=== PATIENT | male | born 1955 | race Caucasian/White ===

== ENCOUNTER 2017-03-24 07:33 | Outpatient (CLI) | payer BC ==
--- NOTE | 2017-03-24 09:31 | ULT ---
ABDOMINAL ULTRASOUND: Date: 03/24/17 PROVIDED CLINICAL HISTORY: Elevated LFTs. FINDINGS: The visualized abdominal aorta is nonaneurysmal. Visualized portions of the IVC appear normal. The p ancreas is largely obscured. The liver demonstrates diffusely increased echogenicity compatible with fatty infiltration without evidence for mass or intrahepatic biliary ductal dilatation. The common duct is not dilated. The gallbladder demonstrates no stones, wall thickening, or pericholecystic flu id. The kidneys demonstrate no evidence for hydronephrosis. There is a circumscribed 1.8 cm focus of diminished echogenicity seen involving the inferior pole of the left kidney likely reflecting a cys t. The spleen appears enlarged, measuring about 13.5 cm in craniocaudal dimension. It measures about 5.3 x 4.4 cm in greatest transverse dimensions. IMPRESSION: 1. Fatty infiltration of the liver. 2. Mild splenomegaly. POS: [facility]
== END 2017-03-24 07:34 | disposition home or self-care (01) ==
LOC: ULT 07:33
PROVIDERS: ATTEND Internal Medicine
DX: R74.0 Nonspecific elevation of levels of transaminase and lactic acid dehydrogenase [LDH] (principal); K76.0 Fatty (change of) liver, not elsewhere classified; R16.1 Splenomegaly, not elsewhere classified
CPT/HCPCS: 76700

== ENCOUNTER 2017-05-13 06:52 | Outpatient (CLI) | payer BC ==
--- NOTE | 2017-05-13 11:04 | MRI ---
CERVICAL SPINE MRI WITHOUT CONTRAST: Date: 05/13/17 HISTORY: Cervical disc degeneration. COMPARISON: None. TECHNIQUE: Cervical spine MRI is performed without intravenous Gadolinium administration. Multisequential, multi planar imaging is performed. FINDINGS: There is appropriate T1 marrow signal intensity of the cervical vertebra. Cervical spine vertebral kacie dy height is maintained. No fracture. No significant STIR hyperintensity to suggest vertebral body ed nataly or ligamentous injury. There is a fluid collection posterior to the occiput. The patient appears to have a previous occipita l craniotomy. Evaluation is incomplete. Differential considerations include a postoperative fluid col lection. The possibility of a CSF leak or other etiologies cannot be excluded. 1.8 mm of retrolisthesis of C3 upon C4, 4.3 mm of anterolisthesis of C6 upon C7, and 3.4 mm of maldonado listhesis of C7 upon T1. Visualized brain parenchyma demonstrates mild cerebellar atrophy at the level of the vermis. The cerv ical cord and upper thoracic cord have an overall normal size and signal intensity. Axial images are somewhat limited by motion. C2-C3: No high grade central canal stenosis. Neural foramina are patent. C3-C4: Broad based disc osteophyte complex. No high grade central canal stenosis. Degenerative changes in bi lateral uncovertebral joints with mild to moderate right and moderate left foraminal narrowing. C4-C5: Broad based disc osteophyte complex. Effacement of the ventral subarachnoid space. Deformity of the c ervical cord. Moderate central canal stenosis. No T2 hyperintensity in the cord. Moderate bilateral f oraminal narrowing due to degenerative change on the uncovertebral joint. C6-C7: Right paracentral disc osteophyte complex. Mild central canal stenosis. No T2 hyperintensity of the c ord. Neural foramina are patent bilaterally. C7-T1: No high grade central canal stenosis or high grade foraminal narrowing. IMPRESSION: 1. Degenerative changes of the cervical spine as above. 2. Posterior scalp fluid as above. Consider additional evaluation. POS: [facility]
--- NOTE | 2017-05-13 11:07 | MRI ---
LUMBAR SPINE MRI WITHOUT IV CONTRAST: HISTORY: A 62-year-old male with lumbar disk herniation, low back pain for a long time. FINDINGS: Multiplanar, multisequence MRI examination of the lumbar spine is performed. Generalized disk desiccation changes and ligament and facet hypertrophic changes. Conus medullaris r egion is unremarkable terminating at L1. At L1-L2, there is some generalized bulging with a somewhat more focally prominent left posterolatera l protrusion with slight foraminal narrowing. At L2-L3, there is diffuse disk bulging again more focally prominent in the left posterolateral aspec t with some mild central canal and lateral recess stenosis and moderate left and mild right foraminal stenosis. At L3-L4, broad-based disk bulging with moderate to severe central canal and lateral recess stenosis and moderate bilateral foraminal stenosis. At L4-L5, diffuse disk bulging is somewhat more prominent centrally in the left paracentral region wi th moderate to severe central canal recess stenosis and moderate left foraminal stenosis. At L5-S1, diffuse disk bulging with moderate left foraminal stenosis. Multilevel variable severity canal, lateral recess, and foraminal stenosis. POS: [facility]
--- NOTE | 2017-05-13 11:31 | MRI ---
MRI OF THE LEFT KNEE WITHOUT CONTRAST: INDICATION: Left knee pain anteriorly. FINDINGS: There is a moderate-sized semimembranosis-medial gastrocnemius popliteal cyst. The extensor mechanis m is intact. The lateral meniscus is intact. There is a horizontally oriented tear involving the kacie dy and posterior horn of the medial meniscus with partial medial extrusion. There is mild diffuse ch ondrosis involving the medial femoral tibial joint compartment. A small bone island is seen within t he proximal aspect of the lateral tibial plateau. Small marginal osteophytes are seen affecting the major compartments of the left knee. No full-thickness osteochondral defect is seen involving the pa tellofemoral compartment nor within the femoral tibial compartment. The MCL, ACL, PCL, LCLC, and ext ensor mechanism is intact. IMPRESSION: 1. Mild diffuse chondrosis involving the medial femoral tibial joint compartment with mild osteophyt osis likely reflecting some early mild osteoarthrosis of the left knee. 2. Medial meniscal tear. 3. Moderate-sized Prater's cyst. POS: [facility]
== END 2017-05-13 06:53 | disposition home or self-care (01) ==
LOC: MRI 06:52
PROVIDERS: ATTEND Internal Medicine
DX: M25.562 Pain in left knee (principal); D16.9 Benign neoplasm of bone and articular cartilage, unspecified; M50.20 Other cervical disc displacement, unspecified cervical region; M51.26 Other intervertebral disc displacement, lumbar region; M71.22 Synovial cyst of popliteal space [Baker], left knee; S83.242A Other tear of medial meniscus, current injury, left knee, initial encounter; M25.762 Osteophyte, left knee
CPT/HCPCS: 72141; 72148